=== PATIENT | female | born 1995 | race Two or more races ===

== ENCOUNTER 2018-01-22 04:04 | Emergency (ER) | payer MEDICAID ==
[~2018-01-22] VITALS: Ht 157.5 cm; Wt 61.2 kg
[2018-01-22] MEDS ORDERED: SODIUM CHLORIDE 0.9% 1,000 ML IV ONE (06:39)
[2018-01-22] MEDS ORDERED: ONDANSETRON HCL 4 MG/2 ML VIAL IV ONE (06:45)
[2018-01-22 06:57] LABS: Basophils # (auto) 0 uL; Basophils % (auto) 0.3 % (0.0-2.0); Eosinophils # (auto) 0 uL; Eosinophils % (auto) 0.1 % (0.0-7.0); Hematocrit 45.2 % (36.0-46.0); Hemoglobin 15.1 g/dL (12.2-16.2); Lymphocytes # (auto) 0.4 uL; Lymphocytes % (auto) 3.1 % (10.0-50.0); Mean Corpuscular Hgb Conc. 33.5 g/dL (32.0-36.0); Mean Corpuscular Volume 89.5 fL (80.0-100.0); Monocytes # (auto) 0.6 uL; Monocytes % (auto) 4.8 % (0.0-12.0); Neutrophils # (auto) 10.8 uL; Neutrophils % (auto) 91.7 % (37.0-80.0); Platelet Count (auto) 175 10^3/uL (140-450); Red Blood Cells 5.05 10^6/uL (4.0-5.20); Red Cell Distribution Width 13.1 % (11.8-14.3); White Blood Cell 11.7 10^3/uL (4.4-10.8)
[2018-01-22 07:17] LABS: Albumin 4.2 g/dL (3.4-5.0); Calcium 9.1 mg/dL (8.5-10.1); Potassium 4.1 mmol/L (3.5-5.1)
[2018-01-22 07:20] LABS: BUN/Creatinine Ratio 33.3; Bilirubin, Total 0.5 mg/dL (0.2-1.0); Total Protein 7.5 g/dL (6.4-8.2)
[2018-01-22] MEDS ORDERED: MORPHINE SULFATE 4 MG/ML SYR/VIAL IV ONE (08:00)
[2018-01-22 09:49] LABS: Urine Bacteria FEW /hpf (None Seen); Urine Blood Negative /uL (Negative); Urine Mucus FEW (None Seen); Urine Specific Gravity 1.013 (1.001-1.035); Urine WBC 9 /hpf (0 - 5)
[2018-01-22] MEDS ORDERED: cefTRIAXone 1GM/50ML D5W 50 ML IV ONE (10:15)
[2018-01-22] MEDS ORDERED: metroNIDAZOLE 500MG/100ML 100 ML IV ONE (10:15)
[2018-01-22 12:06] VITALS: BP 113/71
== END 2018-01-22 12:10 | disposition home or self-care (01) ==
LOC: ER 04:04
DX: K52.9 Noninfective gastroenteritis and colitis, unspecified (principal)
CPT/HCPCS: 36415; 74176; 80053; 81001; 85025; 96361; 96365; 96368; 96375; 99284; J0696; J2270; J2405; J3490; J7030

== ENCOUNTER 2020-01-19 11:36 | Emergency (ER) | payer MEDICAID ==
[~2020-01-19] VITALS: Ht 157.5 cm; Wt 59.9 kg
[2020-01-19 12:06] LABS: Basophils # (auto) 0 10 ^3/uL (0-0.2); Basophils % (auto) 0.4 % (0.0-2.0); Eosinophils # (auto) 0 10 ^3/uL (0-0.8); Eosinophils % (auto) 0.2 % (0.0-7.0); Hematocrit 39.6 % (36.0-46.0); Hemoglobin 13.5 g/dL (12.2-16.2); Lymphocytes # (auto) 1.2 10 ^3/uL (0.4-5.4); Lymphocytes % (auto) 12.4 % (10.0-50.0); Mean Corpuscular Hemoglobin 30.4 pg (28.0-32.0); Mean Corpuscular Hgb Conc. 34.1 g/dL (32.0-36.0); Mean Corpuscular Volume 89.2 fL (80.0-100.0); Monocytes # (auto) 0.5 10 ^3/uL (0-1.3); Monocytes % (auto) 5.1 % (0.0-12.0); Neutrophils # (auto) 7.9 10 ^3/uL (1.6-8.6); Neutrophils % (auto) 81.9 % (37.0-80.0); Platelet Count (auto) 177 10^3/uL (140-450); Red Blood Cells 4.45 10^6/uL (4.0-5.20); Red Cell Distribution Width 13.4 % (11.8-14.3); White Blood Cell 9.7 10^3/uL (4.4-10.8)
[2020-01-19 12:30] VITALS: BP 126/82
== END 2020-01-19 14:40 | disposition home or self-care (01) ==
LOC: ER 11:36
DX: O20.0 Threatened abortion (principal)
CPT/HCPCS: 36415; 76801; 84702; 85025

== ENCOUNTER 2020-05-01 12:21 | Observation (INO) | payer MEDICAID ==
[2020-05-01] MEDS ORDERED: BETAMETHASONE ACET (6MG/ML) 5ML VIAL IM ONE (12:45)
[2020-05-01] MEDS ORDERED: NIFEdipine 10 MG CAP PO ONE (12:45)
[2020-05-01] MEDS ORDERED: TERBUTALINE SULFATE 1 MG/ML 1ML VIAL SC ONE (13:29)
[2020-05-01] MEDS ORDERED: NIF10C PO (14:00)
[2020-05-01] MEDS ORDERED: PREN1TAB71 OR (14:00)
== END 2020-05-01 16:20 | disposition home or self-care (01) ==
LOC: LDRP 12:21
PROVIDERS: ADMIT Specialist; ATTEND Specialist
DX: O26.873 Cervical shortening, third trimester (principal); O60.03 Preterm labor without delivery, third trimester; Z3A.28 28 weeks gestation of pregnancy
CPT/HCPCS: 59025; 76818; 81002; 96360; 96361; 96372; G0378; J0702

== ENCOUNTER 2020-05-02 13:35 | Observation (INO) | payer MEDICAID ==
[~2020-05-02 13:35] MED LIST: NIF10C PO; PREN1TAB71 OR
[2020-05-02] MEDS ORDERED: BETAMETHASONE ACET (30mg/5ml) 5ml Vial 6mg/ml IM ONE (14:45)
== END 2020-05-02 15:42 | disposition home or self-care (01) ==
LOC: LDRP 13:35
PROVIDERS: ADMIT Obstetrics & Gynecology; ATTEND Obstetrics & Gynecology
DX: O60.03 Preterm labor without delivery, third trimester (principal); Z3A.28 28 weeks gestation of pregnancy
CPT/HCPCS: 59025; 81002; 96372; G0378; J0702

== ENCOUNTER 2020-05-09 13:00 | Observation (INO) | payer MEDICAID | END 2020-05-09 14:21 | disposition home or self-care (01) | LOC: LDRP 13:00 | PROVIDERS: ADMIT Specialist; ATTEND Specialist | DX: O60.03 Preterm labor without delivery, third trimester (principal); Z3A.29 29 weeks gestation of pregnancy | CPT/HCPCS: 59025; 81002; G0378 ==

== ENCOUNTER 2020-05-16 13:10 | Observation (INO) | payer MEDICAID ==
[~2020-05-16] VITALS: Ht 157.5 cm; Wt 67.6 kg
== END 2020-05-16 13:53 | disposition home or self-care (01) ==
LOC: LDRP 13:10
PROVIDERS: ADMIT Obstetrics & Gynecology; ATTEND Obstetrics & Gynecology
DX: O60.03 Preterm labor without delivery, third trimester (principal); Z3A.30 30 weeks gestation of pregnancy; Z79.899 Other long term (current) drug therapy
CPT/HCPCS: 59025; 81002; G0378

== ENCOUNTER 2020-05-23 11:28 | Observation (INO) | payer MEDICAID ==
[~2020-05-23] VITALS: Ht 157.5 cm; Wt 68.0 kg
[2020-05-23] MEDS ORDERED: TERBUTALINE SULFATE 1 MG/ML 1ML VIAL SC ONE (12:15)
[2020-05-23] MEDS ORDERED: LACTATED RINGER'S 1,000 ML IV ONE (12:45)
== END 2020-05-23 14:47 | disposition home or self-care (01) ==
LOC: LDRP 11:28
PROVIDERS: ADMIT Obstetrics & Gynecology; ATTEND Obstetrics & Gynecology
DX: O60.03 Preterm labor without delivery, third trimester (principal); Z3A.31 31 weeks gestation of pregnancy
CPT/HCPCS: 59025; 81002; 96360; 96361; 96372; G0378; J3105

== ENCOUNTER 2020-05-24 20:56 | Observation (INO) | payer MEDICAID ==
[~2020-05-24] VITALS: Ht 157.5 cm; Wt 68.0 kg
== END 2020-05-24 22:22 | disposition home or self-care (01) ==
LOC: LDRP 20:56
PROVIDERS: ADMIT Specialist; ATTEND Specialist
DX: O60.03 Preterm labor without delivery, third trimester (principal); Z3A.31 31 weeks gestation of pregnancy
CPT/HCPCS: 59025; 81002; G0378

== ENCOUNTER 2020-05-31 10:37 | Observation (INO) | payer MEDICAID | END 2020-05-31 11:25 | disposition home or self-care (01) | LOC: LDRP 10:37 | PROVIDERS: ADMIT Specialist; ATTEND Specialist | DX: O60.03 Preterm labor without delivery, third trimester (principal); O26.893 Other specified pregnancy related conditions, third trimester; N89.8 Other specified noninflammatory disorders of vagina; Z3A.32 32 weeks gestation of pregnancy | CPT/HCPCS: 59025; 81002; G0378 ==

== ENCOUNTER 2020-06-07 10:04 | Observation (INO) | payer MEDICAID ==
[~2020-06-07] VITALS: Ht 157.5 cm; Wt 71.2 kg
[2020-06-07] MEDS ORDERED: PROGSUP3 VA (10:48)
== END 2020-06-07 11:43 | disposition home or self-care (01) ==
LOC: LDRP 10:04
PROVIDERS: ADMIT Obstetrics & Gynecology; ATTEND Obstetrics & Gynecology
DX: O60.03 Preterm labor without delivery, third trimester (principal); Z3A.33 33 weeks gestation of pregnancy
CPT/HCPCS: 59025; 81002; G0378

== ENCOUNTER 2020-06-14 11:40 | Observation (INO) | payer MEDICAID ==
[~2020-06-14 11:40] MED LIST changes: +PROGSUP3 VA
[2020-06-14] MEDS ORDERED: LACTATED RINGER'S 1,000 ML IV ONE (12:15)
[2020-06-14] MEDS: TERBUTALINE SULFATE 1 MG/ML 1ML VIAL SC SCH ×2 (12:35→13:13)
== END 2020-06-14 14:00 | disposition home or self-care (01) ==
LOC: LDRP 11:40
PROVIDERS: ADMIT Specialist; ATTEND Specialist
DX: O60.03 Preterm labor without delivery, third trimester (principal); O34.63 Maternal care for abnormality of vagina, third trimester; N89.8 Other specified noninflammatory disorders of vagina; Z3A.34 34 weeks gestation of pregnancy; Z79.899 Other long term (current) drug therapy
CPT/HCPCS: 59025; 81002; 96372; G0378; J3105

== ENCOUNTER 2020-06-17 10:48 | Observation (INO) | payer MEDICAID ==
[~2020-06-17] VITALS: Ht 157.5 cm; Wt 71.7 kg
== END 2020-06-17 11:50 | disposition home or self-care (01) ==
LOC: LDRP 10:48
PROVIDERS: ADMIT Obstetrics & Gynecology; ATTEND Obstetrics & Gynecology
DX: O60.03 Preterm labor without delivery, third trimester (principal); O26.873 Cervical shortening, third trimester; Z3A.35 35 weeks gestation of pregnancy
CPT/HCPCS: 59025; 81002; G0378

== ENCOUNTER 2020-06-20 10:35 | Observation (INO) | payer MEDICAID | END 2020-06-20 12:34 | disposition home or self-care (01) | LOC: LDRP 10:35 | PROVIDERS: ADMIT Specialist; ATTEND Specialist | DX: O26.873 Cervical shortening, third trimester (principal); O60.03 Preterm labor without delivery, third trimester; O32.1XX0 Maternal care for breech presentation, not applicable or unspecified; O26.893 Other specified pregnancy related conditions, third trimester; R82.998 Other abnormal findings in urine; Z3A.35 35 weeks gestation of pregnancy | CPT/HCPCS: 59025; 76817; 76818; 81002; 94760; G0378 ==

== ENCOUNTER 2020-06-27 10:57 | Inpatient (IN) | payer MEDICAID ==
[2020-06-27] VITALS (7 sets, daily range): BP systolic 118–132; BP diastolic 63–79
[~2020-06-27] VITALS: Ht 157.5 cm; Wt 72.6 kg
[2020-06-27] MEDS ORDERED: TERBUTALINE SULFATE 1 MG/ML 1ML VIAL SC ONE (14:15)
[2020-06-27] MEDS: TERBUTALINE SULFATE 1 MG/ML 1ML VIAL SC SCH ×2 (14:17→16:36)
[2020-06-27] MEDS ORDERED: ceFAZolin 1GM/50ML 50 ML IV ONE (16:00)
[2020-06-27] MEDS ORDERED: LACTATED RINGER'S 2,000 ML IV ONE (16:00)
[2020-06-27 16:42] LABS: Basophils # (auto) 0 10 ^3/uL (0-0.2); Basophils % (auto) 0.1 % (0.0-2.0); Eosinophils # (auto) 0 10 ^3/uL (0-0.8); Eosinophils % (auto) 0.1 % (0.0-7.0); Hematocrit 39.9 % (36.0-46.0); Hemoglobin 13.6 g/dL (12.2-16.2); Lymphocytes # (auto) 1.6 10 ^3/uL (0.4-5.4); Lymphocytes % (auto) 14.4 % (10.0-50.0); Mean Corpuscular Hemoglobin 30.7 pg (28.0-32.0); Mean Corpuscular Hgb Conc. 34.1 g/dL (32.0-36.0); Mean Corpuscular Volume 89.9 fL (80.0-100.0); Monocytes # (auto) 0.5 10 ^3/uL (0-1.3); Monocytes % (auto) 4.3 % (0.0-12.0); Neutrophils # (auto) 9.1 10 ^3/uL (1.6-8.6); Neutrophils % (auto) 81.1 % (37.0-80.0); Nucleated Red Blood Cells % 0.1 %; Platelet Count (auto) 212 10^3/uL (140-450); Red Blood Cells 4.43 10^6/uL (4.0-5.20); White Blood Cell 11.2 10^3/uL (4.4-10.8)
[2020-06-27 16:47] LABS: Urine Bacteria NONE SEEN /hpf (None Seen); Urine Blood Negative /uL (Negative); Urine Specific Gravity 1.005 (1.001-1.035); Urine WBC 2 /hpf (0 - 5)
[2020-06-27 16:49] LABS: INR 0.89 (0.9-1.15); Partial Thromboplastin Time 23.1 sec (23.0-31.2)
[2020-06-27 16:50] LABS: Albumin 3.2 g/dL (3.4-5.0); Calcium 9.1 mg/dL (8.5-10.1)
[2020-06-27 16:53] LABS: Bilirubin, Total 0.2 mg/dL (0.2-1.0); Total Protein 7.6 g/dL (6.4-8.2)
[2020-06-27 16:58] LABS: Potassium 2.9 mmol/L (3.5-5.1)
[2020-06-27 17:03] LABS: Alcohol, Urine < 3.0 mg/dL (0-10); Amphetamine Screen, Urine NEGATIVE (NEGATIVE); Barbiturate Scree,Urine NEGATIVE (NEGATIVE); Benzodiazephine Screen, Urine NEGATIVE (NEGATIVE); Cannabinoid Screen, Urine NEGATIVE (NEGATIVE); Cocaine Screen, Urine NEGATIVE (NEGATIVE); Opiate Scree,Urine NEGATIVE (NEGATIVE); Phencyclidine Screen, Urine NEGATIVE (NEGATIVE)
[2020-06-27] MEDS ORDERED: MORPHINE SULF(PF) 0.5MG/ML 10ML VIAL ONE (17:43)
[2020-06-27] MEDS ORDERED: METHYLERGONOVINE MALEATE 0.2 MG/ML AMP IM ONE (17:52)
[2020-06-27] MEDS ORDERED: miSOPROStol 100 mcg TAB ONE (17:55)
[2020-06-27] MEDS: LACTATED RINGER'S 1,000 ML IV SCH (18:00)
[2020-06-27] MEDS ORDERED: oxyTOCIN 10 UNIT/ML 10ML VIAL ONE (18:03)
[2020-06-27] MEDS ORDERED: fentaNYL CITRATE 100 MCG/2 ML VL ONE (18:03)
[2020-06-27] MEDS ORDERED: MIDAZOLAM HCL 1MG/1ML-2 ML VIAL ONE (18:03)
[2020-06-27] MEDS ORDERED: DexAMETHasone SOD PHOS 10MG/1ML VIAL INJ ONE (18:11)
[2020-06-27] MEDS ORDERED: ONDANSETRON HCL 4 MG/2 ML VIAL ONE (18:11)
[2020-06-27] MEDS ORDERED: METOCLOPRAMIDE HCL 5MG/ml INJ 2ml VIAL ONE (18:11)
[2020-06-27] MEDS ORDERED: GUM (CHEWING) 1 GUM CHEW CHEW ONE (18:45)
[2020-06-27] MEDS ORDERED: ONDANSETRON HCL 4 MG/2 ML VIAL IV PRN ×2 (18:45→19:00)
[2020-06-27] MEDS ORDERED: LACT. RINGERS/OXYTOCIN 20UNITS 1,000 ML IV ONE (18:45)
[2020-06-27] MEDS ORDERED: MORPHINE SULF INJ 2 MG/ML SYRINGE 1ML IV PRN (18:45)
[2020-06-27] MEDS ORDERED: HYDROmorphone HCL 2 MG/ML VL IV PRN (19:00)
[2020-06-27] MEDS ORDERED: KETOROLAC TROMETH 30 MG/ML 1ML VIAL IV PRN (19:00)
[2020-06-27] MEDS ORDERED: NALBUPHINE HCL 10 MG/1ml INJECTION SUBCUT ONE (19:00)
[2020-06-27] MEDS ORDERED: DexAMETHasone SOD PHOS 10MG/1ML VIAL INJ IV PRN (19:00)
[2020-06-27] MEDS ORDERED: diphenhdrAMINE HCL 50 MG/1 ML VL IV PRN (19:00)
[2020-06-27] MEDS ORDERED: OXYTOCIN 10UNIT/ML 1ML VIAL ONE (19:02)
[2020-06-27] MEDS ORDERED: ceFAZolin 1GM/50ML 50 ML IV SCH (19:15)
[2020-06-27] MEDS: ceFAZolin 1GM/50ML 50 ML IV SCH (20:00)
[2020-06-27] MEDS ORDERED: POTASSIUM CHL 20MEQ/100ML 200 ML IV ONE (23:37)
[2020-06-27 23:44] LABS: Basophils # (auto) 0.1 10 ^3/uL (0-0.2); Basophils % (auto) 0.4 % (0.0-2.0); Eosinophils # (auto) 0 10 ^3/uL (0-0.8); Hematocrit 33.9 % (36.0-46.0); Hemoglobin 11.7 g/dL (12.2-16.2); Lymphocytes # (auto) 0.7 10 ^3/uL (0.4-5.4); Lymphocytes % (auto) 4.6 % (10.0-50.0); Mean Corpuscular Hemoglobin 30.7 pg (28.0-32.0); Mean Corpuscular Hgb Conc. 34.6 g/dL (32.0-36.0); Mean Corpuscular Volume 88.6 fL (80.0-100.0); Monocytes # (auto) 0.4 10 ^3/uL (0-1.3); Monocytes % (auto) 2.6 % (0.0-12.0); Neutrophils % (auto) 92.4 % (37.0-80.0); Platelet Count (auto) 189 10^3/uL (140-450); Red Blood Cells 3.83 10^6/uL (4.0-5.20); Red Cell Distribution Width 13.1 % (11.8-14.3); White Blood Cell 15.1 10^3/uL (4.4-10.8)
[2020-06-27] MEDS: POTASSIUM CHL 20MEQ/100ML 100 ML IV SCH (23:50)
[2020-06-28] VITALS (10 sets, daily range): BP systolic 109–128; BP diastolic 67–92
[2020-06-28] MEDS ORDERED: POTASSIUM CHL 20MEQ/100ML 100 ML IV SCH (01:50)
[2020-06-28] MEDS: POTASSIUM CHL 20MEQ/100ML 100 ML IV SCH (02:11)
[2020-06-28] MEDS ORDERED: ACETAMINOPHEN IV 1000 MG/100ML (10MG/ML) IV ONE (02:15)
[2020-06-28] MEDS: ceFAZolin 1GM/50ML 50 ML IV SCH ×2 (04:36→11:31)
[2020-06-28 07:06] LABS: RPR Non Reactive (Non Reactive)
[2020-06-28 07:14] LABS: Basophils # (auto) 0 10 ^3/uL (0-0.2); Basophils % (auto) 0.2 % (0.0-2.0); Eosinophils # (auto) 0 10 ^3/uL (0-0.8); Hematocrit 32.7 % (36.0-46.0); Hemoglobin 11.2 g/dL (12.2-16.2); Lymphocytes # (auto) 1.5 10 ^3/uL (0.4-5.4); Lymphocytes % (auto) 10.2 % (10.0-50.0); Mean Corpuscular Hemoglobin 30.5 pg (28.0-32.0); Mean Corpuscular Hgb Conc. 34.3 g/dL (32.0-36.0); Monocytes # (auto) 0.9 10 ^3/uL (0-1.3); Monocytes % (auto) 5.7 % (0.0-12.0); Neutrophils # (auto) 12.5 10 ^3/uL (1.6-8.6); Neutrophils % (auto) 83.9 % (37.0-80.0); Platelet Count (auto) 160 10^3/uL (140-450); Red Blood Cells 3.68 10^6/uL (4.0-5.20); Red Cell Distribution Width 13.1 % (11.8-14.3); White Blood Cell 14.9 10^3/uL (4.4-10.8)
[2020-06-28] MEDS: LACTATED RINGER'S 1,000 ML IV SCH (10:03)
[2020-06-28] MEDS ORDERED: LACTATED RINGER'S 1,000 ML IV SCH (11:00)
[2020-06-28] MEDS ORDERED: BISACODYL 10 MG RECT SUPP PR PRN (11:00)
[2020-06-28] MEDS ORDERED: HYDROcodone-ACET 5/325MG TAB PO PRN (11:00)
[2020-06-28] MEDS: SIMETHICONE 80 MG CHEWABLE TABLET PO SCH ×2 (12:00→18:35)
[2020-06-28] MEDS: IBUPROFEN 800 MG TAB PO PRN (13:28)
[2020-06-29] MEDS: IBUPROFEN 800 MG TAB PO PRN ×3 (00:58→18:30)
[2020-06-29 03:00] VITALS: BP 116/65
[2020-06-29 07:00] VITALS: BP 118/68
[2020-06-29] MEDS: DOCUSATE CALCIUM 240 MG CAP PO SCH (07:56)
[2020-06-29] MEDS: DOCUSATE SOD 100 MG CAP PO SCH ×3 (07:56→21:40)
[2020-06-29] MEDS: HYDROcodone-ACET 5/325MG TAB PO PRN ×2 (07:57→14:15)
[2020-06-29] MEDS: SIMETHICONE 80 MG CHEWABLE TABLET PO SCH ×5 (07:57→21:40)
[2020-06-29 11:00] VITALS: BP 121/70
[2020-06-29 15:00] VITALS: BP 110/68
[2020-06-29 18:33] VITALS: BP 116/72
[2020-06-29 23:01] VITALS: BP 115/71
[2020-06-30 03:00] VITALS: BP 109/69
[2020-06-30] MEDS: IBUPROFEN 800 MG TAB PO PRN ×2 (03:03→09:50)
[2020-06-30 07:00] VITALS: BP 111/81
[2020-06-30] MEDS: SIMETHICONE 80 MG CHEWABLE TABLET PO SCH (07:05)
[2020-06-30] MEDS: DOCUSATE CALCIUM 240 MG CAP PO SCH (09:46)
[2020-06-30 11:00] VITALS: BP 109/74
[2020-06-30 17:08] VITALS: BP 123/90
== END 2020-06-30 18:47 | disposition home or self-care (01) | DRG 540 ==
LOC: LDRP 10:57 → OBSVTOIN 15:58 → LDRP 21:03
PROVIDERS: ADMIT Obstetrics & Gynecology; ATTEND Obstetrics & Gynecology
PROC: 10D00Z1 Extraction of Products of Conception, Low, Open Approach (ICD-10-PCS; principal; 2020-06-27 17:49)
DX: O32.1XX0 Maternal care for breech presentation, not applicable or unspecified (principal); O60.14X0 Preterm labor third trimester with preterm delivery third trimester, not applicable or unspecified; Z37.0 Single live birth; Z3A.36 36 weeks gestation of pregnancy; Z20.822 Contact with and (suspected) exposure to COVID-19
CPT/HCPCS: 36415; 59025; 76818; 80053; 80307; 81001; 81002; 82948; 84132; 85025; 85610; 85730; 86592; 86850; 86900; 86901; 87426; 94760; 94762; 96360; 96361; 96365; 96366; 96372; G0378; J0131; J0690; J1100; J1885; J2250; J2405; J2590; J3480

== ENCOUNTER 2024-08-09 13:47 | Outpatient (CLI) | payer SELFPAY ==
[~2024-08-09 13:47] MED LIST changes: -NIF10C PO; -PROGSUP3 VA
[2024-08-09 14:33] LABS: Basophils # (auto) 0 10 ^3/uL (0-0.2); Basophils % (auto) 0.5 % (0.0-2.0); Eosinophils # (auto) 0.1 10 ^3/uL (0-0.8); Eosinophils % (auto) 0.7 % (0.0-7.0); Hematocrit 43.7 % (36.0-46.0); Hemoglobin 14.7 g/dL (12.2-16.2); Lymphocytes # (auto) 1.4 10 ^3/uL (0.4-5.4); Lymphocytes % (auto) 16.8 % (10.0-50.0); Mean Corpuscular Hemoglobin 29.4 pg (28.0-32.0); Mean Corpuscular Hgb Conc. 33.7 g/dL (32.0-36.0); Mean Corpuscular Volume 87.3 fL (80.0-100.0); Monocytes # (auto) 0.5 10 ^3/uL (0-1.3); Monocytes % (auto) 6.2 % (0.0-12.0); Neutrophils # (auto) 6.5 10 ^3/uL (1.6-8.6); Neutrophils % (auto) 75.8 % (37.0-80.0); Platelet Count (auto) 205 10^3/uL (140-450); Red Blood Cells 5.01 10^6/uL (4.0-5.20); White Blood Cell 8.6 10^3/uL (4.4-10.8)
[2024-08-09 15:24] LABS: Amphetamine Screen, Urine Neg (NEGATIVE); Barbiturate Scree,Urine Neg (NEGATIVE); Benzodiazephine Screen, Urine Neg (NEGATIVE); Cannabinoid Screen, Urine Neg (NEGATIVE); Cocaine Screen, Urine Neg (NEGATIVE); Opiate Scree,Urine Neg (NEGATIVE); Phencyclidine Screen, Urine Neg (NEGATIVE)
[2024-08-11 05:07] LABS: Chlamydia Trachomatis, NAA Negative (Negative); Neisseria gonorrhoeae, NAA Negative (Negative)
[2024-08-13 01:06] LABS: QuantiFERON-TB Gold Plus Negative (Negative)
== END 2024-08-09 17:00 | disposition home or self-care (01) ==
LOC: LAB 13:47
PROVIDERS: ATTEND Obstetrics & Gynecology
DX: Z34.80 Encounter for supervision of other normal pregnancy, unspecified trimester (principal); Z72.51 High risk heterosexual behavior; Z3A.00 Weeks of gestation of pregnancy not specified; Z79.899 Other long term (current) drug therapy
CPT/HCPCS: 36415; 80307; 83036; 84144; 84702; 85025; 86703; 86762; 86780; 86850; 86900; 86901; 87086; 87340

== ENCOUNTER → 2024-08-30 | Outpatient (CLI) | payer MEDICAID | END | disposition home or self-care (01) | LOC: LAB 13:13 | PROVIDERS: ATTEND Obstetrics & Gynecology | DX: Z34.00 Encounter for supervision of normal first pregnancy, unspecified trimester (principal); Z3A.00 Weeks of gestation of pregnancy not specified | CPT/HCPCS: 36415; 86780 ==